=== PATIENT | male | born 1980 | race Caucasian/White ===

== ENCOUNTER 2018-05-05 21:15 | Emergency (ER) | payer OTHER ==
[~2018-05-05 21:15] MED LIST: CITA-145 PO; LANS15CA32 PO
[2018-05-05] MEDS ORDERED: LAN30PT PO (21:21)
[2018-05-05] MEDS ORDERED: SERT-1 PO (21:21)
--- NOTE | 2018-05-05 21:31 | ER Report ---
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 He caught his right arm on the ledge. Patient was able to continue working the rest of the day. His arm began to stiffen up with pain radiating into his neck. By the end of the day. His right arm shows full range of motion. He complains of no wrist or elbow pain. Allergies: Coded Allergies: ibuprofen (Verified Allergy, Intermediate, hives, 05/05/18) Home Meds Reported Medications Lansoprazole (PREVACID) 30 Mg Capsule.dr, 15 MG PO QPM, CAP 05/05/18 Sertraline Hcl (ZOLOFT) 50 Mg Tablet, 1 TAB PO QDAY, TAB 05/05/18 Discontinued Reported Medications Lansoprazole (LANSOPRAZOLE) 15 Mg Capsule.dr, 1 TAB PO QDAY, #100 TAB 03/01/15 Discontinued Scripts Citalopram Hydrobromide (CITALOPRAM HBR) 20 Mg Tablet, 1 TAB PO QDAY, #90 TAB 3 Refills TAKE 1 TABLET BY MOUTH EVERY DAY Prov:ALAN FORMAN MD 03/01/15 Past Medical/Surgical History Past Medical History Gastrointestinal: Reports hx of: GERD (heartburn for years. tx with prevacid. not had ulcers or needed EGD. ) Musculoskeletal: Reports hx of: fractures (Fx right clavicle in 93. ) Psychiatric: Reports hx of: depression (Started tx with citalopram after divorce. ) Events: REPORTS HX OF: Other events (initial visit 03/14. ) Past Surgical History HEENT: Reports hx of: other nasal surgery (repair deviated septum 1995 in [facility]. ) Reviewed Nurses Notes: Yes Old Medical Records Reviewed: Yes Smoking Status: Never Smoker Constitutional Vital Sign - Last 24 Hours 05/05/18 05/05/18 05/05/18 05/05/18 21:20 21:21 21:30 21:45 Temp 97.8 Pulse 110 107 114 Resp 14 B/P (MAP) 154/103 (120) 154/103 143/86 (105) Pulse Ox 93 94 93 O2 Delivery Room Air 05/05/18 22:00 Pulse 112 B/P (MAP) 142/96 (111) Pulse Ox 96 Physical Exam General appearance: Alert no distress. Respiratory: Chest is non tender, lungs are clear to auscultation. Cardiac: Regular rate and rhythm Extremities: Examination of the right shoulder demonstrates fairly intact range of motion. There is some tenderness. Supraclavicular fossa. There is some tenderness in the right trapezius muscle extending up into the neck DIFFERENTIAL DIAGNOSIS: After history and physical exam differential diagnosis was considered for sprain, strain, fracture, dislocation, contusion, rotator cuff Tear Medical Decision Making EKG/Imaging Imaging X-ray: Right shoulder, 2 views was obtained. I viewed the images myself on the PACS system. My interpretation of the images is: No fracture no dislocation or malalignment. The radiologist interpretation had no clinically significant variation from this interpretation. ED Course/Re-evaluation ED Course Patient was admitted to an examination room. H&P was done. The differential diagnoses was considered. On clinical examination. Patient has a fairly intact range of motion. Shoulder. He has significant pain in the clavicle and up into his neck. Gnostic x-rays are performed which are unremarkable for obvious fracture, dislocation. Patient advised to conservative treatment plan of Aleve 220 mg 2 tablets twice daily with food. He's advised to apply ice to the shoulder for 2 days, 20 minutes several times a day. Patient's advised to follow-up with [facility] if unimproved Decision to Disposition Date: May 05, 2018 Decision to Disposition Time: 21:49 Depart Departure Latest Vital Signs Vital Signs Date Time Temp Pulse Resp B/P (MAP) Pulse Ox O2 Delivery O2 Flow Rate FiO2 05/05/18 22:00 112 142/96 (111) 96 05/05/18 21:21 97.8 14 Room Air Impression: Primary Impression: Right shoulder strain Additional Impression: Sprain of shoulder, right Condition: Improved Disposition: HOME OR SELF-CARE Referrals: ALAN FORMAN MD (PCP) JEAN-PAUL WORLEY MD Patient Instructions: Shoulder Sprain (ED) Additional Instructions: Take Aleve 220 mg 2 tablets twice daily a day with food for 3-5 days Follow-up with [facility] If unimproved in 5-7 days Problem Qualifiers Primary Impression: Right shoulder strain Encounter type: initial encounter Qualified Codes: S46.911A - Strain of unspecified muscle, fascia and tendon at shoulder and upper arm level, right arm , initial encounter Additional Impression: Sprain of shoulder, right Encounter type: initial encounter Shoulder sprain type: unspecified sprain Qualified Codes: S43.401A - Unspecified sprain of right shoulder joint, initial encounter MARLO REEDER DO May 05, 2018 21:31
[2018-05-05 22:00] VITALS: BP 142/96
--- NOTE | 2018-05-05 22:24 | RADIOLOGY IMAGING REPORT ---
FACILITY: [facility] [place] PATIENT NAME: Ramirez Shelton : 1980 MR: [id number] V: [id number] EXAM DATE: ORDERING PHYSICIAN: MARLO REEDER TECHNOLOGIST: Location: [facility] Patient: Ramirez Shelton : 1980 Visit/Account:[id number] Date of Sevice: 05/05/2018 INDICATION: Fall, right shoulder injury. EXAM DATE: 05/05/2018 9:32 PM COMPARISON: None. FINDINGS: 2 views of the right shoulder. Mineralization is normal. No acute alignment abnormality or fracture. Soft tissues are unremarkable. IMPRESSION: Normal right shoulder. Report Dictated By: Bartolo Johnson MD at 05/05/2018 10:19 PM Report E-Signed By: Bartolo Johnson MD at 05/05/2018 10:20 PM WSN:[id number]
== END 2018-05-05 22:12 | disposition home or self-care (01) ==
LOC: ER 21:39
DX: S46.911A Strain of unspecified muscle, fascia and tendon at shoulder and upper arm level, right arm, initial encounter (principal); S43.401A Unspecified sprain of right shoulder joint, initial encounter; W17.89XA Other fall from one level to another, initial encounter
CPT/HCPCS: 99283